=== PATIENT | male | born 1960 | race Caucasian/White ===

== ENCOUNTER 2018-01-29 17:37 | Inpatient (IN) | payer OTHER ==
[2018-01-29 19:08] LABS: PLATELET COUNT 342 10^3/uL (150-400)
[2018-01-29 19:17] LABS: INR 1.48 (0.83-1.16); PROTIME(PATIENT) 18.1 SEC (12.0-15.0)
--- NOTE | 2018-01-29 19:39 | EDPHY ---
H & P Stated Complaint: JAUNDICED/UPPER ABD PAIN CT SHOWSBILE DUCT OBSTRUCTION Time Seen by Provider: 01/29/18 17:49 HPI/ROS: CHIEF COMPLAINT: Jaundice, epigastric pain HISTORY OF PRESENT ILLNESS: 57-year-old male with recurrent pancreatitis presents with jaundice and epigastric pain. Onset of jaundice yesterday, increased today. Associated with moderate epigastric pain and vomiting. History of recurrent pancreatitis. Cholecystectomy performed because of recurrent pancreatitis and was found have a small pancreatic duct. Had a pancreatic duct stent until 2016, when it was removed. No subsequent episodes of pancreatitis until yesterday. Had an outpatient noncontrast abdominal CT scan done prior to arrival that showed pancreatic inflammation. Sent here for further evaluation. No prior history of jaundice. REVIEW OF SYSTEMS: complete 10 point ROS reviewed and is negative except for the noted elements in the HPI Source: Patient Exam Limitations: No limitations - Personal History Current Tetanus Diphtheria and Acellular Pertussis (TDAP): Yes Tetanus Vaccine Date: < 10 years - Medical/Surgical History Hx Asthma: No Hx Chronic Respiratory Disease: No Hx Diabetes: No Hx Cardiac Disease: No Hx Renal Disease: No Hx Cirrhosis: No Hx Alcoholism: No Hx HIV/AIDS: No Hx Splenectomy or Spleen Trauma: No Other PMH: pancreatitis, hypertension, testicle cyst removal, knee surg, yady. - Social History Smoking Status: Heavy smoker Alcohol Use: Sober Drug Use: None Additional Social History: - Physical Exam Exam: General Appearance: Alert, pleasant Eyes: Pupils equal and round, scleral icterus ENT, Mouth: Mucous membranes moist Neck: Normal inspection Respiratory: Lungs are clear to auscultation Cardiovascular: Regular rate and rhythm Gastrointestinal: Abdomen is soft, epigastric tenderness Neurological: A&O, nonfocal, normal gait Skin: Warm and dry, jaundiced Extremities: Nontender, no pedal edema Psychiatric: Mood and affect normal Constitutional: Initial Vital Signs Temperature (C) 37.1 C 01/29/18 17:45 Heart Rate 96 01/29/18 17:45 Respiratory Rate 18 01/29/18 17:45 Blood Pressure 125/84 H 01/29/18 17:45 O2 Sat (%) 99 01/29/18 17:45 O2 Delivery Mode Room Air Allergies/Adverse Reactions: No Known Allergies Allergy (Verified 01/29/18 17:43) Home Medications: Medication Instructions Recorded Fenofibrate [Lofibra] 160 mg PO DAILY 12/07/14 Metoprolol Succinate 100 mg PO DAILY 12/07/14 Omeprazole [Prilosec] 40 mg PO DAILY 12/07/14 PARoxetine HCL [Paxil 20mg (*)] 40 mg PO DAILY 12/07/14 Albuterol [Proventil Inhaler HFA 1 - 2 puffs IH Q4H PRN 01/29/18 (*)] Apixaban [Eliquis] 10 mg PO DAILY 01/29/18 Bimatoprost 0.01% [Lumigan 0.01% 1 drop EACHEYE HS 01/29/18 (*)] Lisinopril [Zestril 20 mg (*)] 20 mg PO DAILY 01/29/18 Rosuvastatin Calcium [Crestor] 10 mg PO DAILY 01/29/18 Medical Decision Making ED Course/Re-evaluation: This patient presents with epigastric pain and jaundice. Outpatient CT scan revealed acute pancreatitis. Laboratory tests ordered and reveal elevated bilirubin 30 and lipase 433. c/w biliary duct obstruction with acute pancreatitis. No evidence of infection. Dilaudid and Zofran IV given for nausea and pain control with good relief. Abdominal exam remains unchanged. Patient remained comfortable throughout the remainder of his emergency department stay. The hospitalist service was consulted for admission. Differential Diagnosis: Differential diagnosis includes though it is not limited to appendicitis, cholecystitis, diverticulitis, pyelonephritis, bowel perforation, small bowel obstruction. - Data Points Laboratory Results: Laboratory Results 01/29/18 18:50 01/29/18 18:50 01/29/18 01/29/18 01/29/18 18:55 18:50 18:50 WBC RBC Hgb Hct MCV MCH MCHC RDW Plt Count MPV Neut % (Auto) Lymph % (Auto) Harmon % (Auto) Eos % (Auto) Baso % (Auto) Nucleat RBC Rel Count Absolute Neuts (auto) Absolute Lymphs (auto) Absolute Monos (auto) Absolute Eos (auto) Absolute Basos (auto) Absolute Nucleated RBC Immature Gran % Immature Gran # PT 18.1 SEC H SEC (12.0-15.0) INR 1.48 H (0.83-1.16) APTT 30.1 SEC SEC (23.0-38.0) Sodium 134 mEq/L L mEq/L (135-145) Potassium 4.3 mEq/L mEq/L (3.3-5.0) Chloride 101 mEq/L mEq/L (97-110) Carbon Dioxide 20 mEq/l L mEq/l (22-31) Anion Gap 13 mEq/L mEq/L (6-14) BUN 14 mg/dL mg/dL (7-23) Creatinine 1.0 mg/dL mg/dL (0.7-1.3) Estimated GFR > 60 Glucose 119 mg/dL H mg/dL (70-100) Calcium 9.5 mg/dL mg/dL (8.5-10.4) Total Bilirubin 30.5 mg/dL H mg/dL (0.1-1.4) Conjugated Bilirubin 28.3 mg/dL H mg/dL (0.0-0.5) Unconjugated Bilirubin 2.2 mg/dL H mg/dL (0.0-1.1) Icterus Index > 25 AST 499 IU/L H IU/L (17-59) ALT 227 IU/L H IU/L (21-72) Alkaline Phosphatase 936 IU/L H IU/L (38-126) Total Protein 7.9 g/dL g/dL (6.3-8.2) Albumin 3.8 g/dL g/dL (3.5-5.0) Lipase 344 IU/L H IU/L (23-300) Urine Color SHERYL Urine Appearance HAZY Urine pH 5.0 (5.0-7.5) Ur Specific [place] 1.023 (1.002-1.030) Urine Protein 1+ H (NEGATIVE) Urine Ketones NEGATIVE (NEGATIVE) Urine Blood NEGATIVE (NEGATIVE) Urine Nitrate NEGATIVE (NEGATIVE) Urine Bilirubin POSITIVE H (NEGATIVE) Urine Urobilinogen 4.0 EU H EU (0.2-1.0) Ur Leukocyte Esterase NEGATIVE (NEGATIVE) Urine RBC 1-3 /hpf /hpf (0-3) Urine WBC 3-5 /hpf H /hpf (0-3) Ur Epithelial Cells TRACE /lpf /lpf (NONE-1+) Hyaline Casts 1-5 /lpf /lpf (0-1) Urine Mucus 2+ /lpf H /lpf (NONE-1+) Urine Glucose NEGATIVE (NEGATIVE) 01/29/18 18:50 WBC 13.59 10^3/uL H 10^3/uL (3.80-9.50) RBC 3.72 10^6/uL L 10^6/uL (4.40-6.38) Hgb 12.3 g/dL L g/dL (13.7-17.5) Hct 37.1 % L % (40.0-51.0) MCV 99.7 fL fL (81.5-99.8) MCH 33.1 pg pg (27.9-34.1) MCHC 33.2 g/dL g/dL (32.4-36.7) RDW 15.8 % H % (11.5-15.2) Plt Count 342 10^3/uL 10^3/uL (150-400) MPV 11.3 fL fL (8.7-11.7) Neut % (Auto) 74.8 % H % (39.3-74.2) Lymph % (Auto) 10.7 % L % (15.0-45.0) Harmon % (Auto) 7.0 % % (4.5-13.0) Eos % (Auto) 5.5 % % (0.6-7.6) Baso % (Auto) 0.8 % % (0.3-1.7) Nucleat RBC Rel Count 0.0 % % (0.0-0.2) Absolute Neuts (auto) 10.16 10^3/uL H 10^3/uL (1.70-6.50) Absolute Lymphs (auto) 1.46 10^3/uL 10^3/uL (1.00-3.00) Absolute Monos (auto) 0.95 10^3/uL H 10^3/uL (0.30-0.80) Absolute Eos (auto) 0.75 10^3/uL H 10^3/uL (0.03-0.40) Absolute Basos (auto) 0.11 10^3/uL H 10^3/uL (0.02-0.10) Absolute Nucleated RBC 0.00 10^3/uL 10^3/uL (0-0.01) Immature Gran % 1.2 % H % (0.0-1.1) Immature Gran # 0.16 10^3/uL H 10^3/uL (0.00-0.10) PT INR APTT Sodium Potassium Chloride Carbon Dioxide Anion Gap BUN Creatinine Estimated GFR Glucose Calcium Total Bilirubin Conjugated Bilirubin Unconjugated Bilirubin Icterus Index AST ALT Alkaline Phosphatase Total Protein Albumin Lipase Urine Color Urine Appearance Urine pH Ur Specific [place] Urine Protein Urine Ketones Urine Blood Urine Nitrate Urine Bilirubin Urine Urobilinogen Ur Leukocyte Esterase Urine RBC Urine WBC Ur Epithelial Cells Hyaline Casts Urine Mucus Urine Glucose Medications Given: Discontinued Medications Hydromorphone HCl (Dilaudid) 0.5 mg IVP EDNOW ONE Stop: 01/29/18 19:41 Last Admin: 01/29/18 19:44 Dose: 0.5 mg Lorazepam (Ativan Injection) 1 mg IVP EDNOW ONE Stop: 01/29/18 20:53 Last Admin: 01/29/18 20:56 Dose: 1 mg Ondansetron HCl (Zofran) 4 mg IVP EDNOW ONE Stop: 01/29/18 19:41 Last Admin: 01/29/18 19:44 Dose: 4 mg Departure - Departure Disposition: [facility] Acute Clinical Impression: Jaundice Condition: Good
[2018-01-29] MEDS ORDERED: ONDANSETRON 4 MG/2 ML VIAL IVP ONE (19:40)
[2018-01-29] MEDS ORDERED: HYDROmorphONE/DILAUDID 2 MG/ML INJ IVP ONE (19:40)
[2018-01-29] MEDS ORDERED: ONDANSETRON DISINTEGRATING 4 MG TAB PO PRN (20:43)
[2018-01-29] MEDS ORDERED: LORazepam 2 MG/ML INJ IVP PRN (20:43)
[2018-01-29] MEDS ORDERED: ONDANSETRON 4 MG/2 ML VIAL IVP PRN (20:43)
[2018-01-29] MEDS ORDERED: HYDROmorphONE/DILAUDID 1 MG/ML INJ IVP PRN (20:43)
[2018-01-29] MEDS ORDERED: LORazepam 2 MG/ML INJ IVP ONE (20:52)
--- NOTE | 2018-01-29 22:37 | PDGENHP ---
History and Physical - Chief Complaint yellow skin and eyes - History of Present Illness 57 yo M with hx of recurrent pancreatitis in the past with pancreatic duct stricture with prior stent placement and dilation and no recurrent issues for the last couple of years. He notes that last night when he was going to bed he thought his skin looked a bit yellow, then this morning he noticed his eyes and skin were for sure very yellow. He was sent by his PCP to get an abd CT scan and per his report when the radiologist read the report he told him to come to the hospital immediately. He has been having some abdominal pain as well, particularly in the mid epigastric region, but he states that compared to his prior bouts of pancreatitis it is quite mild. He has not been passing gas recently. Of note, he did have a colonoscopy on Saturday and is getting over a bout of pertussis for which he still has a mild cough. History Information - Allergies/Home Medication List Allergies/Adverse Reactions: No Known Allergies Allergy (Verified 01/29/18 17:43) Home Medications: Fenofibrate [Lofibra] 160 mg PO DAILY 12/07/14 [Last Taken 01/29/18] Metoprolol Succinate 100 mg PO DAILY 12/07/14 [Last Taken 01/29/18] Omeprazole [Prilosec] 40 mg PO DAILY 12/07/14 [Last Taken 01/29/18] PARoxetine HCL [Paxil 20mg (*)] 40 mg PO DAILY 12/07/14 [Last Taken 01/29/18] Albuterol [Proventil Inhaler HFA (*)] 1 - 2 puffs IH Q4H PRN 01/29/18 [Last Taken 3 Weeks Ago ~01/08/18] Apixaban [Eliquis] 10 mg PO DAILY 01/29/18 [Last Taken 01/29/18] Bimatoprost 0.01% [Lumigan 0.01% (*)] 1 drop EACHEYE HS 01/29/18 [Last Taken 09/09] Lisinopril [Zestril 20 mg (*)] 20 mg PO DAILY 01/29/18 [Last Taken 01/29/18] Rosuvastatin Calcium [Crestor] 10 mg PO DAILY 01/29/18 [Last Taken 01/29/18] I have personally reviewed and updated: family history, medical history, social history, surgical history - Past Medical History hypertension, hyperlipidemia, psychiatric history Additional medical history: recurrent/chronic pancreatitis. pancreatic pseudocyst. aortic thrombus - Surgical History Reports: cholecystectomy Additional surgical history: knee surgery. testicular cyst removal - Family History Positive for: non-pertinent - Social History Smoking Status: Heavy smoker Alcohol Use: Sober Drug Use: None Review of Systems Review of Systems: ROS: 10pt was reviewed & negative except for what was stated in HPI & below Physical Exam Physical Exam: Temp Pulse Resp BP Pulse Ox 37.1 C 100 16 121/32 H 95 01/29/18 17:45 01/29/18 21:18 01/29/18 21:18 01/29/18 21:18 01/29/18 21:18 Constitutional: no apparent distress, appears nourished Eyes: EOMI, icteric sclera Ears, Nose, Mouth, Throat: moist mucous membranes, hearing normal, ears appear normal Cardiovascular: regular rate and rhythym, no murmur, rub, or gallop, edema Respiratory: no respiratory distress, no rales or rhonchi, clear to auscultation Gastrointestinal: normoactive bowel sounds, soft, non-tender abdomen, no palpable masses Genitourinary: no bladder tenderness Skin: warm, other (jaundiced) Musculoskeletal: no muscle tenderness Neurologic: AAOx3 Psychiatric: interacting appropriately, not anxious, not encephalopathic Lab Data & Imaging Review 01/29/18 18:50 01/29/18 18:50 WBC 13.59 10^3/uL (3.80-9.50) H 01/29/18 18:50 RBC 3.72 10^6/uL (4.40-6.38) L 01/29/18 18:50 Hgb 12.3 g/dL (13.7-17.5) L 01/29/18 18:50 Hct 37.1 % (40.0-51.0) L 01/29/18 18:50 MCV 99.7 fL (81.5-99.8) 01/29/18 18:50 MCH 33.1 pg (27.9-34.1) 01/29/18 18:50 MCHC 33.2 g/dL (32.4-36.7) 01/29/18 18:50 RDW 15.8 % (11.5-15.2) H 01/29/18 18:50 Plt Count 342 10^3/uL (150-400) 01/29/18 18:50 MPV 11.3 fL (8.7-11.7) 01/29/18 18:50 Neut % (Auto) 74.8 % (39.3-74.2) H 01/29/18 18:50 Lymph % (Auto) 10.7 % (15.0-45.0) L 01/29/18 18:50 [place] % (Auto) 7.0 % (4.5-13.0) 01/29/18 18:50 Eos % (Auto) 5.5 % (0.6-7.6) 01/29/18 18:50 Baso % (Auto) 0.8 % (0.3-1.7) 01/29/18 18:50 Nucleat RBC Rel Count 0.0 % (0.0-0.2) 01/29/18 18:50 Absolute Neuts (auto) 10.16 10^3/uL (1.70-6.50) H 01/29/18 18:50 Absolute Lymphs (auto) 1.46 10^3/uL (1.00-3.00) 01/29/18 18:50 Absolute Monos (auto) 0.95 10^3/uL (0.30-0.80) H 01/29/18 18:50 Absolute Eos (auto) 0.75 10^3/uL (0.03-0.40) H 01/29/18 18:50 Absolute Basos (auto) 0.11 10^3/uL (0.02-0.10) H 01/29/18 18:50 Absolute Nucleated RBC 0.00 10^3/uL (0-0.01) 01/29/18 18:50 Immature Gran % 1.2 % (0.0-1.1) H 01/29/18 18:50 Immature Gran # 0.16 10^3/uL (0.00-0.10) H 01/29/18 18:50 PT 18.1 SEC (12.0-15.0) H 01/29/18 18:50 INR 1.48 (0.83-1.16) H 01/29/18 18:50 APTT 30.1 SEC (23.0-38.0) 01/29/18 18:50 Sodium 134 mEq/L (135-145) L 01/29/18 18:50 Potassium 4.3 mEq/L (3.3-5.0) 01/29/18 18:50 Chloride 101 mEq/L (97-110) 01/29/18 18:50 Carbon Dioxide 20 mEq/l (22-31) L 01/29/18 18:50 Anion Gap 13 mEq/L (6-14) 01/29/18 18:50 BUN 14 mg/dL (7-23) 01/29/18 18:50 Creatinine 1.0 mg/dL (0.7-1.3) 01/29/18 18:50 Estimated GFR > 60 01/29/18 18:50 Glucose 119 mg/dL (70-100) H 01/29/18 18:50 Calcium 9.5 mg/dL (8.5-10.4) 01/29/18 18:50 Total Bilirubin 30.5 mg/dL (0.1-1.4) H 01/29/18 18:50 Conjugated Bilirubin 28.3 mg/dL (0.0-0.5) H 01/29/18 18:50 Unconjugated Bilirubin 2.2 mg/dL (0.0-1.1) H 01/29/18 18:50 Icterus Index > 25 01/29/18 18:50 AST 499 IU/L (17-59) H 01/29/18 18:50 ALT 227 IU/L (21-72) H 01/29/18 18:50 Alkaline Phosphatase 936 IU/L (38-126) H 01/29/18 18:50 Total Protein 7.9 g/dL (6.3-8.2) 01/29/18 18:50 Albumin 3.8 g/dL (3.5-5.0) 01/29/18 18:50 Lipase 344 IU/L (23-300) H 01/29/18 18:50 Urine Color SHERYL 01/29/18 18:55 Urine Appearance HAZY 01/29/18 18:55 Urine pH 5.0 (5.0-7.5) 01/29/18 18:55 Ur Specific [place] 1.023 (1.002-1.030) 11/07/18 18:55 Urine Protein 1+ (NEGATIVE) H 01/29/18 18:55 Urine Ketones NEGATIVE (NEGATIVE) 01/29/18 18:55 Urine Blood NEGATIVE (NEGATIVE) 01/29/18 18:55 Urine Nitrate NEGATIVE (NEGATIVE) 01/29/18 18:55 Urine Bilirubin POSITIVE (NEGATIVE) H 01/29/18 18:55 Urine Urobilinogen 4.0 EU (0.2-1.0) H 01/29/18 18:55 Ur Leukocyte Esterase NEGATIVE (NEGATIVE) 01/29/18 18:55 Urine RBC 1-3 /hpf (0-3) 01/29/18 18:55 Urine WBC 3-5 /hpf (0-3) H 01/29/18 18:55 Ur Epithelial Cells TRACE /lpf (NONE-1+) 01/29/18 18:55 Hyaline Casts 1-5 /lpf (0-1) 01/29/18 18:55 Urine Mucus 2+ /lpf (NONE-1+) H 01/29/18 18:55 Urine Glucose NEGATIVE (NEGATIVE) 01/29/18 18:55 Assessment & Plan Assessment: Jaundice (Acute) 57 yo M with hx of recurrent pancreatitis and pancreatic duct stricture presenting with jaundice # jaundice/elevated lfts: obstructive picture with very elevated bili, alk phos and transaminases. Per radiology, read of outside CT scan only c/w pancreatitis. Discussed with GI, at this time will get MRCP for further evaluation, GI to evaluate in am, patient likely will require ERCP/EUS and may make the most sense to transfer to [facility] where the physicians already know him. Will trend lfts # acute on chronic pancreatitis: patient with only mildly elevated lipase but ct evidence of pancreatitis and pain c/w this, will start IVF, keep NPO, pain management with IV dilaudid as needed # chronic AC: presumably on this for hx of aortic thrombus, will hold for possible procedure in am # recent pertussis: with persistent cough but otherwise largely resolved # leukocytosis: trending, no sxs suggestive of acute infection # anemia: mild, stable, trending # IP status, will require > 48 hours stay for eval/mgmt of above Patient new to my care. Old records reviewed and summarized as above. Care plan reviewed with ER doctor as above, further hx obtained from patients present at bedside.
[2018-01-29] MEDS ORDERED: ALBUTEROL 60 PUFFS/8 GM MDI IH PRN (22:45)
[2018-01-29] MEDS: PROMETHAZINE HCL 25 MG/ML INJ IVP PRN (23:23)
[2018-01-29] MEDS: NS 1,000 ML IV SCH (23:24)
[2018-01-30] MEDS: HYDROmorphONE/DILAUDID 1 MG/ML INJ IVP PRN ×9 (01:41→20:05)
[2018-01-30 05:30] LABS: PLATELET COUNT 264 10^3/uL (150-400)
[2018-01-30 05:37] LABS: INR 1.34 (0.83-1.16); PROTIME(PATIENT) 16.8 SEC (12.0-15.0)
[2018-01-30] MEDS ORDERED: METOPROLOL SUCCINATE XR 100 MG TAB PO SCH (09:00)
[2018-01-30] MEDS ORDERED: LISINOPRIL 20 MG TAB PO SCH (09:00)
[2018-01-30] MEDS: ROSUVASTATIN CALCIUM 10 MG TAB PO SCH (09:21)
[2018-01-30] MEDS: PANTOPRAZOLE SODIUM 40 MG TAB PO SCH (09:21)
[2018-01-30] MEDS: PARoxetine HCL 20 MG TAB PO SCH (09:21)
[2018-01-30] MEDS: FENOFIBRATE 145 MG TAB PO SCH (09:21)
--- NOTE | 2018-01-30 10:26 | PDMN ---
Medical Necessity Medical necessity: Pt meets inpt criteria per MD order and MCG M-250, Pancreatitis, 2 days. 57 y/o w/hx of recurrent pancreatitis w/pancreatic duct stricture/stent placement presented w/mid epigastric abdominal pain, jaundice, and elevated LFT's. CT scan consistent w/pancreatitis, GI consult, MRCP today for further eval, will likely need ERCP/EUS. NPO, IVF, IV Dilaudid for pain (pt requiring this roughly every 2-3 hrs), anticipate>2MN for further med nec eval/ management of above.
[2018-01-30] MEDS: NS 1,000 ML IV SCH (11:44)
--- NOTE | 2018-01-30 12:01 | GCON ---
INPATIENT CONSULTATION REFERRING PHYSICIAN: Vasquez Hendrickson MD REASON FOR CONSULTATION: Jaundice. CHIEF COMPLAINT: Jaundice. HISTORY OF PRESENT ILLNESS: Briefly, the patient is a pleasant 57-year-old male with a history of re current chronic pancreatitis. The etiology of this is somewhat uncertain. He reports over the prior 10-15 years he had recurrent episodes of acute on chronic pancreatitis. Ultimately, he underwent se rial pancreatic duct manipulation at the [facility] with gradually enlarging pancreatic stent placement. His last series of that type of work was approximately 4 year s ago. He reports that since then he had few, if ever, episodes of pancreatitis. He does admit to he occasional occurrence of abdominal discomfort, although mild and rarely at all limiting. He repor ts that this was a significant difference from his prior several years of recurrent, sometimes severe , and frequent, episodes of pain. He was in his usual state of health until recently. In fact, he recently underwent a surveillance co lonoscopy without difficulty. Over the last several days, however, he noticed some worsening jaundic e. In that setting, he was evaluated through his primary care doctor with laboratory testing and CAT scan where he was noted to have an elevated bilirubin and a dilated bile duct. He was admitted to [facility] for additional management. Reports some mild abdominal discomfort similar to pain from pancreatitis, although reports much less severe than can be. He has had no fever, chills, sweats. He reports no sick contacts. He reports n o alcohol use. He reports no exposure to drugs or new medical therapies. ALLERGIES: None. OUTPATIENT MEDICATIONS: Were fenofibrate, metoprolol, Prilosec, Paxil, albuterol, Eliquis, lisinopri l, and rosuvastatin. PAST MEDICAL HISTORY: Includes elevated lipids and hypertension. History of recurrent and chronic p ancreatitis and remote history of pseudocyst. SURGICAL HISTORY: Cholecystectomy. FAMILY HISTORY: Negative for pancreatitis. SOCIAL HISTORY: He has history of alcohol use. Current smoker. No drug use. REVIEW OF SYSTEMS: A complete 10-system review was undertaken with the patient and is negative excep t for those details described in the history of present illness. PHYSICAL EXAMINATION: GENERAL: This is a well-developed male, in no apparent distress. HEENT: His pupils are equal, round, reactive to light and accommodation. Sclerae are very icteric. His oropha rynx is clear. NECK: Supple without lymphadenopathy. HEART: Regular without murmur. ABDOMEN: So ft, nontender. He has normoactive bowel sounds. EXTREMITIES: Free of cyanosis, clubbing, and edema . NEURO: Grossly nonfocal. SKIN: Warm and dry, but clearly jaundiced. PSYCHIATRIC: Reveals norm al mood and affect. LABORATORY TESTING: White count of 10.28, hemoglobin of 10.3, hematocrit 31.5, MCV of 100.6, platele t count of 264, INR of 1.48, sodium of 137, potassium of 4.1, chloride of 107, bicarb of 19, BUN of 1 6, creatinine of 0.9, total bilirubin of 28.3, conjugated bilirubin of 26.5, unconjugated bilirubin o f 1.8, AST of 428, ALT of 189, alkaline phosphatase of 702, lipase of 344. MRI of the abdomen is cur rently pending, but the initial report shows biliary ductal dilation without mass. IMPRESSION AND RECOMMENDATIONS: The patient has had the gradual development over the last several da ys of jaundice associated with icterus. His laboratory and imaging testing is consistent with biliar y ductal obstruction. Decompression of the bile ducts is indicated. He will likely need endoscopic ultrasound with ERCP to evaluate the reason for obstruction and to consider decompression maneuver nuñez ch as stenting. His outpatient medication list includes blood thinning agent, Eliquis, I will need t o review that with him. We may need to postpone his intervention in order to allow that medication t o wear off. /[id number]/MODL
--- NOTE | 2018-01-30 12:12 | HOSPPROG ---
Hospitalist Progress Note Assessment/Plan: 57 yo M w h/o biliary strictures and stents here w obstructive jaundice, possibel pancreatitis pancreatitis: mild, but does have abdominal pain and no appetite continue NPO pain meds pancreatic head fullness: similar to that in past but perhaps worse almost certainly a result of chronic pancreatitis EUS in AM jaundice: obstructive ercp in AM pruritis: trial of neurontin 100 daily- this has been shown to be effectivein about 50% of cases aortic thrombus: seen on echo and chest CTA 12/07/14 no apprent follow up may be reasonable to repat that study on this admission after ercp/eus (not ordered) proph: anticoagulated (on hold for procedure) dispo: inpt Subjective: case d/w leonel tracy. itchy Objective: Vital Signs Temp Pulse Resp BP Pulse Ox 36.7 C 93 16 119/74 94 01/30/18 07:38 01/30/18 07:38 01/30/18 07:38 01/30/18 07:38 01/30/18 07:38 Laboratory Results 01/30/18 04:15 01/30/18 04:15 01/29/18 01/30/18 01/31/18 05:59 05:59 05:59 Intake Total 958 Balance 958 PT 16.8 SEC (12.0-15.0) H 01/30/18 04:15 INR 1.34 (0.83-1.16) H 01/30/18 04:15 - Physical Exam Constitutional: no apparent distress, appears nourished Eyes: PERRL, icteric sclera Ears, Nose, Mouth, Throat: moist mucous membranes, hearing normal Cardiovascular: regular rate and rhythym, no murmur, rub, or gallop Respiratory: no respiratory distress, no rales or rhonchi Gastrointestinal: normoactive bowel sounds, soft, non-tender abdomen Genitourinary: no bladder fullness, No tyler in urethra Skin: warm, normal color Musculoskeletal: full muscle strength Neurologic: AAOx3 Psychiatric: interacting appropriately, not anxious ICD10 Worksheet Patient Problems: Problems Problem Status Onset Jaundice Acute
[2018-01-30] MEDS: GABAPENTIN 100 MG CAP PO SCH (12:43)
--- NOTE | 2018-01-30 13:02 | ASMTCMCOM ---
CM Note CM Note Notes: Discussed pt in rounds. Pt admitted for jaundice and possibly pancreatitis secondary to biliary obstruction in the setting of long history of biliary strictures and stents. Pt lives independently with . Pt to receive ERCP and US in the morning. Pt will likely discharge independently. No therapies ordered. D/C Plan: independent Date Signed: 01/30/2018 01:01 PM Electronically Signed By:Stephy Jensen
[2018-01-30] MEDS: NICOTINE 21 MG/24 HR PATCH TD SCH (13:41)
[2018-01-30] MEDS: PROMETHAZINE HCL 25 MG/ML INJ IVP PRN (20:00)
[2018-01-30] MEDS: BIMATOPROST 0.01% EACHEYE SCH (20:08)
[2018-01-30] MEDS ORDERED: PATCH REMOVAL 1 EA PATCH TD SCH (21:00)
[2018-01-30] MEDS: MELATONIN 3 MG TAB PO SCH (22:00)
[2018-01-31] MEDS: NS 1,000 ML IV SCH (05:27)
[2018-01-31] MEDS: PROMETHAZINE HCL 25 MG/ML INJ IVP PRN ×3 (08:55→13:28)
[2018-01-31] MEDS: HYDROmorphONE/DILAUDID 1 MG/ML INJ IVP PRN ×5 (08:56→21:29)
[2018-01-31] MEDS ORDERED: GLUCAGON HCL 1 MG VIAL ONE (10:24)
[2018-01-31] MEDS ORDERED: IOTHALAMATE MEG (CONRAY) 50 ML VIAL IV ONE (10:24)
[2018-01-31] MEDS ORDERED: INDOMETHACIN 50 MG SUPP PR ONE (10:25)
[2018-01-31] MEDS ORDERED: fentaNYL 100 MCG/2 ML INJ ONE ×2 (10:38→12:52)
[2018-01-31] MEDS ORDERED: PROPOFOL 200 MG/20 ML VIAL ONE (10:38)
[2018-01-31] MEDS ORDERED: ROCURONIUM 50 MG/5 ML VIAL ONE (10:39)
[2018-01-31] MEDS ORDERED: LIDOCAINE 2% 100 MG/5 ML SYR ONE (10:39)
--- NOTE | 2018-01-31 10:46 | PDANEPAE ---
ANE History of Present Illness Jaundice, here for ERCP EUS EGD ANE Past Medical History - Cardiovascular History Hx Hypertension: Yes Hx Arrhythmias: No Hx Chest Pain: No Hx Coronary Artery / Peripheral Vascular Disease: No Hx CHF / Valvular Disease: No Hx Palpitations: No Cardiovascular History Comment: NO CP - Pulmonary History Hx COPD: No Hx Asthma/Reactive Airway Disease: Yes Hx Recent Upper Respiratory Infection: No Hx Oxygen in Use at Home: No Hx Sleep Apnea: No Pulmonary History Comment: ASTHMA ATTACKS ONLY WITH URIs. DENIES SOB W STAIRS - Neurologic History Hx Cerebrovascular Accident: No Hx Seizures: No Hx Dementia: No - Endocrine History Hx Diabetes: No - Renal History Hx Renal Disorders: No - Liver History Hx Hepatic Disorders: Yes Hepatic History Comment: PANCREATITIS CURRENTLY. HAD FOR 15 YEARS WITH PERIODIC FLARE UPS - Neurological & Psychiatric Hx Hx Neurological and Psychiatric Disorders: Yes Neurological / Psychiatric History Comment: ANXIETY - Cancer History Hx Cancer: No - Congenital Disorder History Hx Congenital Disorders: No - GI History Hx Gastrointestinal Disorders: Yes Gastrointestinal History Comment: ABD PAIN. NAUSEA AND VOMITING - Other Health History Other Health History: NA - Chronic Pain History Chronic Pain: Yes (ABD PAIN) - Surgical History Prior Surgeries: KNEE SURG LEFT 20 Y AGO. TESTICULAR CYST REM 15 Y AGO ANE Review of Systems Review of Systems: - Exercise capacity Exercise capacity: >=4 METS ANE Patient History - Allergies Allergies/Adverse Reactions: No Known Allergies Allergy (Verified 01/29/18 17:43) - Home Medications Home Medications: Fenofibrate [Lofibra] 160 mg PO DAILY 12/07/14 [Last Taken 01/29/18] Metoprolol Succinate 100 mg PO DAILY 12/07/14 [Last Taken 01/29/18] Omeprazole [Prilosec] 40 mg PO DAILY 12/07/14 [Last Taken 01/29/18] PARoxetine HCL [Paxil 20mg (*)] 40 mg PO DAILY 12/07/14 [Last Taken 01/29/18] Albuterol [Proventil Inhaler HFA (*)] 1 - 2 puffs IH Q4H PRN 01/29/18 [Last Taken 3 Weeks Ago ~01/08/18] Apixaban [Eliquis] 10 mg PO DAILY 01/29/18 [Last Taken 01/29/18] Bimatoprost 0.01% [Lumigan 0.01% (*)] 1 drop EACHEYE HS 01/29/18 [Last Taken 09/09] Lisinopril [Zestril 20 mg (*)] 20 mg PO DAILY 01/29/18 [Last Taken 01/29/18] Rosuvastatin Calcium [Crestor] 10 mg PO DAILY 01/29/18 [Last Taken 01/29/18] - NPO status NPO Status: no food or drink >8 hours - Anes Hx Anes Hx: no prior problems - Smoking Hx Smoking Status: Heavy smoker - Alcohol Use Alcohol Use: Sober - Family Anes Hx Family Anes Hx: none Family Hx Anesthesia Complications: NEG ANE Labs/Vital Signs - Labs Result Diagrams: 01/30/18 04:15 01/30/18 04:15 - Vital Signs Blood Pressure: 120/76 Heart Rate: 88 Respiratory Rate: 10 O2 Sat (%): 95 Height: 177.8 cm Weight: 82.372 kg ANE Physical Exam - Airway Neck exam: FROM Mallampati Score: Class 2 Mouth exam: normal dental/mouth exam, chavez - Pulmonary Pulmonary: no respiratory distress, clear to auscultation - Cardiovascular Cardiovascular: regular rate and rhythym, no murmur, rub, or gallop - ASA Status ASA Status: III ANE Anesthesia Plan Anesthesia Plan: general endotracheal anesthesia
--- NOTE | 2018-01-31 12:37 | HOSPPROG ---
Hospitalist Progress Note Assessment/Plan: 57 yo M w h/o biliary strictures and stents here w obstructive jaundice, possible pancreatitis pancreatitis: mild, but does have abdominal pain and no appetite -OK to restart diet and advance as tolerated per GI pancreatic head fullness: similar to noted previously -chronic pancreatitis -s/p ERCP with metal stent placement per GI -has been seen at [facility] prev also jaundice: obstructive -now with metal stent -watch LFTs -FU with [facility] as outpt pruritis: trial of neurontin 100 daily helping -add hydroxyzine prn aortic thrombus: seen on echo and chest CTA 12/07/14 -no apparent follow up -restart anticoag when hgb stable -needs re-eval as oupt anemia -watch closely for stability -fu as outpt, may need further outpt evals DVT prophy: chronic anticoagulated (on hold for procedure) PCP Marina Bai FULL CODE dispo: > 2 mdnts for IVF, IV pain medications, possible further evaluation of jaundice Subjective: Just returned from ERCP, hungry, pain OK with meds. No n/v. Objective: Vital Signs Temp Pulse Resp BP Pulse Ox 98.2 F 88 10 L 120/76 95 01/31/18 10:38 01/31/18 10:46 01/31/18 10:46 01/31/18 10:46 01/31/18 10:46 Laboratory Results 01/30/18 04:15 01/30/18 04:15 01/30/18 01/31/18 02/01/18 11:59 11:59 11:59 Intake Total 958 3656 Balance 958 3656 PT 16.8 SEC (12.0-15.0) H 01/30/18 04:15 INR 1.34 (0.83-1.16) H 01/30/18 04:15 - Time Spent With Patient Time Spent with Patient: greater than 35 minutes Time Spent with Patient: Greater than 35 minutes spent on this patients care, greater than 50% of time spent counseling, educating, and coordinating care regarding the above mentioned plan. - Physical Exam Constitutional: no apparent distress, other (very jaundiced) Eyes: icteric sclera Ears, Nose, Mouth, Throat: moist mucous membranes, hearing normal Cardiovascular: regular rate and rhythym, no murmur, rub, or gallop Respiratory: no respiratory distress, no rales or rhonchi, clear to auscultation Gastrointestinal: normoactive bowel sounds, tenderness (throughout) Skin: other (jaundiced) Psychiatric: interacting appropriately, not anxious, not encephalopathic, thought process linear ICD10 Worksheet Patient Problems: Problems Problem Status Onset Jaundice Acute
--- NOTE | 2018-01-31 12:37 | GIREPORT ---
[facility] Surgical Services - Endoscopy Department Patient Name: Dean Roca Procedure Date: 01/31/2018 10:35 AM Patient Type: Inpatient Attending MD/ ER Physician: Alvarado Pemberton MD Procedure: Upper EUS Indications: Suspected mass in pancreas on MRI, Obstruction of bile duct on MRI, Epigastric abdominal pain Patient Profile: 57 year old male with a history of chronic pancreatitis presents for evaluation of CBD dilation with jaundice and abnormal imaging with enla rged pancreatic head with questionable mass lesion. Providers: Alvarado Pemberton MD Medicines: General Anesthesia Complications: No immediate complications. Estimated blood loss: Minimal. Description of Procedure: After obtaining informed consent, the endoscope was passed under direct vision. Throughout the procedure, the patient's blood pressure, pulse, and oxygen saturations were monitored continuously. The Endosonoscope was introduced through the mouth, and advanced to the second part of duoden um. The Endosonoscope was introduced through the mouth, and advanced to the second part of duodenum. The upper EUS was accomplished without difficu lty. The esophagus, stomach, and duodenum were visualized endosonographicall y. The patient tolerated the procedure well. Findings: Endoscopic Finding : The examined esophagus was normal. A hiatal hernia was present. Patchy mildly erythematous mucosa was found in the entire examined stom ach. Biopsies were taken with a cold forceps for histology. An acquired mild stenosis was found in the second portion of the duoden um and was traversed. The mucosa was edematous. Biopsies were taken with a cold forceps for histology. Endosonographic Finding : There was no sign of significant endosonographic abnormality in the visualized portion of the liver. No masses were identified. No lymphadenopathy seen. There was dilation in the common bile duct which measured up to 14 mm. It appeared to run into a possible mass lesion. An irregular mass was identified in the pancreatic head. The mass was hypoechoic. The mass measured 15 mm by 15 mm in maximal cross-sectional diameter. The endosonographic borders were poorly-defined. Fine needle aspiration for cytology was performed. Color Doppler imaging was utiliz ed prior to needle puncture to confirm a lack of significant vascular structures within the needle path. Three passes were made with the 25 g auge needle using a transduodenal approach. A stylet was used. A vulcanizer rubber plate was present and performed a preliminary cytologic examination. Estimated Blood Loss: Estimated blood loss was minimal. Post Op Diagnosis: - Normal esophagus. - Hiatal hernia. - Erythematous mucosa in the stomach. Biopsied. - Acquired duodenal stenosis. Biopsied. - There was no evidence of significant pathology in the visualized port ion of the liver. - There was dilation in the common bile duct which measured up to 14 mm . - A mass was identified in the pancreatic head. Fine needle aspiration performed. Chronic pancreatitis mass versus malignancy? Suspect inflamm atory mass? Recommendation: - Perform an ERCP today. - Await cytology results and await path results. - Thank you for allowing Attending Participation: I personally performed the entire procedure. Alvarado Pemberton MD Alvarado Pemberton MD 01/31/2018 12:36:28 PM This report has been signed electronicallyAlvarado Pemberton MD Number of Addenda: 0 Note Initiated On: 01/31/2018 10:35 AM [email or web address]
--- NOTE | 2018-01-31 12:43 | GIREPORT ---
Replaced By [facility] Surgical Services - Endoscopy Department Patient Name: Dean Roca Procedure Date: 01/31/2018 11:54 AM Patient Type: Inpatient Attending MD/ ER Physician: Alvarado Pemberton MD Procedure: ERCP Indications: Abnormal MRCP, Jaundice Patient Profile: 57 year old male presents for biliary decompression. He has significant jaundice with an obstruction noted on MRCP. Providers: Alvarado Pemberton MD Medicines: General Anesthesia Complications: No immediate complications. Estimated blood loss: Minimal. Description of Procedure: After obtaining informed consent, the scope was passed under direct vis ion. Throughout the procedure, the patient's blood pressure, pulse, and oxyg en saturations were monitored continuously. The Duodenalscope was introduc ed through the mouth, and advanced to the duodenum and used to inject cont rast into the bile duct. The ERCP was accomplished without difficulty. The patient tolerated the procedure well. Findings: A press helper film of the abdomen was obtained. Surgical clips, consistent wi th a previous cholecystectomy, were seen in the area of the right upper quad rant of the abdomen. The esophagus was successfully intubated under direct vision. The scope was advanced to a normal major papilla in the descend ing duodenum without detailed examination of the pharynx, larynx and associ ated structures, and upper GI tract. With difficulty, the duodenoscope was p assed into the second portion of the duodenum . Due to the duodenal stenosis this was technically challenging. The ampulla was eventually identified and a wire was passed into the biliary tree. There was evidence of a prior bi liary sphincterotomy. The short-nosed traction sphincterotome was passed over the guidewire and the bile duct was then deeply cannulated. Contrast was injected. I personally interpreted the bile duct images. Ductal flow of contrast was adequate. Image quality was adequate. Contrast extended to the entire biliary tree. The lower third of the main bile duct contained localized stenoses 15 mm in length in the area of the pancreatic head. The biliary tree was swept with a 12 mm balloon starting at the bifurcation . Sludge was swept from the duct. Cytology brushings obtained. One 10 mm by 6 cm covered metal stent was placed into the common bile duct. Bile flowe d through the stent. The stent was in good position. Estimated Blood Loss: Estimated blood loss was minimal. Post Op Diagnosis: - Localized biliary strictures were found in the lower third of the claudia n bile duct. - The biliary tree was swept and sludge was found. - Cytology brushings performed. - One covered metal stent was placed into the common bile duct. Recommendation: - Return patient to hospital [facility] for ongoing care. - Repeat ERCP in 3 months to remove stent. - Thank you for allowing me to participate in the care of your patient. Attending Participation: I personally performed the entire procedure. Alvarado Pemberton MD Alvarado Pemberton MD 01/31/2018 12:43:10 PM This report has been signed electronicallyAlvarado Pemberton MD Number of Addenda: 0 Note Initiated On: 01/31/2018 11:54 AM [email or web address]
[2018-01-31] MEDS ORDERED: NALOXONE HCL 0.4 MG/ML INJ IVP PRN (12:47)
[2018-01-31] MEDS ORDERED: ONDANSETRON 4 MG/2 ML VIAL IVP PRN (12:47)
--- NOTE | 2018-01-31 12:47 | POSTANESTH ---
Post Anesthetic Evaluation Cardiovascular Status: Normal, Stable, Similar to Pre-Op Cond Respiratory Status: Normal, Stable, Similar to Pre-op Cond. Level of Consciousness/Mental Status: Can Participate in Eval, Alert and Oriented Pain Control: Adequate, Prn Tx Ordered Nausea/Vomiting Control: Adequate, Prn Tx Ordered Complications Possibly Related to Anesthesia: None Noted
[2018-01-31] MEDS: fentaNYL 100 MCG/2 ML INJ IVP PRN ×2 (12:53→13:00)
[2018-01-31] MEDS ORDERED: HYDROmorphONE/DILAUDID 2 MG/ML INJ ONE (13:10)
[2018-01-31] MEDS ORDERED: PROMETHAZINE HCL 25 MG/ML INJ ONE (13:14)
[2018-01-31] MEDS: NICOTINE 21 MG/24 HR PATCH TD SCH (13:53)
--- NOTE | 2018-01-31 14:36 | ASMTCMCOM ---
CM Note CM Note Notes: Pt lives independently with . Pt to receive ERCP and US today. Pt will likely discharge independently. No therapies ordered. D/C Plan: independent Date Signed: 01/31/2018 02:29 PM Electronically Signed By:Tracy Santana
[2018-01-31] MEDS ORDERED: D5W 1/2 NS 1,000 ML IV SCH (14:45)
[2018-01-31] MEDS: PANTOPRAZOLE SODIUM 40 MG TAB PO SCH (15:24)
[2018-01-31] MEDS: GABAPENTIN 100 MG CAP PO SCH (15:24)
[2018-01-31] MEDS: PARoxetine HCL 20 MG TAB PO SCH (15:24)
[2018-01-31] MEDS: FENOFIBRATE 145 MG TAB PO SCH (15:25)
[2018-01-31] MEDS: ROSUVASTATIN CALCIUM 10 MG TAB PO SCH (15:25)
[2018-01-31] MEDS: hydrOXYzine HCL 25 MG TAB PO PRN (15:25)
[2018-01-31] MEDS: BIMATOPROST 0.01% EACHEYE SCH (21:13)
[2018-01-31] MEDS: MELATONIN 3 MG TAB PO SCH (21:14)
[2018-02-01] MEDS: HYDROmorphONE/DILAUDID 1 MG/ML INJ IVP PRN ×3 (00:37→12:08)
[2018-02-01 05:35] LABS: PLATELET COUNT 261 10^3/uL (150-400)
[2018-02-01] MEDS: FENOFIBRATE 145 MG TAB PO SCH (08:49)
[2018-02-01] MEDS: PROMETHAZINE HCL 25 MG/ML INJ IVP PRN (08:49)
[2018-02-01] MEDS: ROSUVASTATIN CALCIUM 10 MG TAB PO SCH (08:49)
[2018-02-01] MEDS: GABAPENTIN 100 MG CAP PO SCH (08:50)
[2018-02-01] MEDS: PANTOPRAZOLE SODIUM 40 MG TAB PO SCH (08:50)
[2018-02-01] MEDS: PARoxetine HCL 20 MG TAB PO SCH (08:50)
[2018-02-01] MEDS: NICOTINE 21 MG/24 HR PATCH TD SCH (09:00)
--- NOTE | 2018-02-01 09:19 | SOAPPROG ---
SOAP Progress Note Assessment/Plan: Assessment: Jaundice s/o ERCP with stnet bili better Abd Pain ?better no b melena Decrease H+H suspect hydration no e/o active bleeding Plan: Agree with recheck H+H Trial of clear liquids ADT If H+H stable and able to take PO OK to D/C Repeat ERCp in 3 months 02/01/18 09:16 Subjective: CC Jaundice Some epi pain this AM no melena Objective: Vital Signs Temp Pulse Resp BP Pulse Ox 36.7 C 88 18 151/102 H 98 02/01/18 08:00 02/01/18 08:00 02/01/18 08:00 02/01/18 08:00 02/01/18 08:00 Laboratory Results 02/01/18 04:44 02/01/18 04:44 01/31/18 02/01/18 02/02/18 05:59 05:59 05:59 Intake Total 3656 1825 Balance 3656 1825 PT 16.8 SEC (12.0-15.0) H 01/30/18 04:15 INR 1.34 (0.83-1.16) H 01/30/18 04:15 Physical Exam - Physical Exam General Appearance: WD/WN Respiratory: lungs clear Abdomen: soft (mild tenderness no rebound) ICD10 Worksheet Patient Problems: Problems Problem Status Onset Jaundice Acute
[2018-02-01] MEDS: hydrOXYzine HCL 25 MG TAB PO PRN ×2 (10:43→16:48)
[2018-02-01] MEDS: APIXABAN 5 MG TAB PO SCH ×2 (13:30→21:12)
[2018-02-01] MEDS: traMADol 50 MG TAB PO PRN (15:36)
[2018-02-01] MEDS: PROMETHAZINE HCL 25 MG TAB PO PRN ×2 (15:42→21:12)
[2018-02-01] MEDS: MELATONIN 3 MG TAB PO SCH (21:13)
[2018-02-01] MEDS: oxyCODONE IR 5 MG TAB PO PRN (21:13)
[2018-02-01] MEDS: BIMATOPROST 0.01% EACHEYE SCH (21:16)
[2018-02-02] MEDS: traMADol 50 MG TAB PO PRN (02:49)
[2018-02-02] MEDS: oxyCODONE IR 5 MG TAB PO PRN ×2 (02:49→11:32)
[2018-02-02 05:21] LABS: PLATELET COUNT 255 10^3/uL (150-400)
[2018-02-02 07:33] VITALS: BP 159/101
[2018-02-02] MEDS: GABAPENTIN 100 MG CAP PO SCH (10:32)
[2018-02-02] MEDS: PANTOPRAZOLE SODIUM 40 MG TAB PO SCH (10:32)
[2018-02-02] MEDS: APIXABAN 5 MG TAB PO SCH (10:32)
[2018-02-02] MEDS: ROSUVASTATIN CALCIUM 10 MG TAB PO SCH (10:33)
[2018-02-02] MEDS: FENOFIBRATE 145 MG TAB PO SCH (10:33)
[2018-02-02] MEDS: NICOTINE 21 MG/24 HR PATCH TD SCH (10:33)
[2018-02-02] MEDS: PARoxetine HCL 20 MG TAB PO SCH (10:33)
[2018-02-02] MEDS: PROMETHAZINE HCL 25 MG TAB PO PRN (11:31)
--- NOTE | 2018-02-02 17:29 | ASDISCHSUM ---
Discharge Information Plan Status:Home with No Needs Medically Cleared to Leave:02/01/2018 Discharge Date:02/02/2018 11:37 AM CM D/C Disposition:Home, Routine, Self-Care ADT D/C Disposition:Home, Routine, Self-Care Projected Discharge Date:02/02/2018 11:37 AM Transportation at D/C:Family Discharge Delay Reason: Follow-Up Date:02/02/2018 11:37 AM Discharge Slot:2 - 12:01 pm - 18:00 pm Final Diagnosis:pancreatitis Placement Information Patient Contact Information Contact Name:YELENA Relationship: Address:[address] [place] [address] [address] Work Phone: [facility]:[place] Alternate Phone: [facility]/Zip Code:[place] [address] Email: Financial Information Financial Class:Michael Yeboah Primary Plan Desc:[facility]HAEL PAPPAS [facility] Primary Plan Number:[id number] Secondary Plan Desc: Secondary Plan Number: Assessment Information [facility] CM Progress Note CM Note CM Note Notes: Discussed pt in rounds. Pt admitted for jaundice and possibly pancreatitis secondary to biliary obstruction in the setting of long history of biliary strictures and stents. Pt lives independently with . Pt to receive ERCP and US in the morning. Pt will likely discharge independently. No therapies ordered. D/C Plan: independent Date Signed: 01/30/2018 01:01 PM Electronically Signed By:Stephy Jensen [facility] CM Progress Note CM Note CM Note Notes: Pt lives independently with . Pt to receive ERCP and US today. Pt will likely discharge independently. No therapies ordered. D/C Plan: independent Date Signed: 01/31/2018 02:29 PM Electronically Signed By:Tracy Santana Intervention Information
--- NOTE | 2018-02-02 17:30 | ASMTCMCOM ---
CM Note CM Note Notes: Patient discharged home independently, to follow up as recommended. [employer] PPO coverage. Date Signed: 02/02/2018 05:29 PM Electronically Signed By:Kylee Lizarraga
--- NOTE | 2018-02-03 00:58 | HOSPPROG ---
Hospitalist Progress Note Assessment/Plan: 57 yo M w h/o biliary strictures and stents here w obstructive jaundice, pancreatitis pancreatitis: mild, improving -tolerating diet -change to oral pain/nausea meds pancreatic head fullness: similar to noted previously -chronic pancreatitis -s/p ERCP with metal stent placement per GI yesterday -has been seen at [facility] prev also jaundice: obstructive -improving s/p metal stent placement yesterday -FU with [facility] as outpt pruritis: trial of neurontin 100 daily helping -hydroxyzine prn helping aortic thrombus: seen on echo and chest CTA 12/07/14 -no apparent follow up -restart anticoag -needs re-eval as oupt anemia -watch closely for stability -fu as outpt, may need further outpt evals DVT prophy: chronic anticoagulated (on hold for procedure but restart today) PCP Marina Bai FULL CODE dispo: hopeful discharge tomorrow if OK with oral medications and LFTs continue to decrease Subjective: Still with pain/cramping but less than yesterday, says prev stent didnt cause pain. Hydroxyzine helped with itching. No n/v/d, will try to eat/ drink a bit more today and transition to oral meds as eager to discharge. Objective: Vital Signs Temp Pulse Resp BP Pulse Ox 97.9 F 86 16 159/101 H 96 02/02/18 07:33 02/02/18 07:33 02/02/18 07:33 02/02/18 07:33 02/02/18 07:33 Laboratory Results 02/02/18 04:36 02/01/18 04:44 02/01/18 02/02/18 02/03/18 11:59 11:59 11:59 Intake Total 1825 850 Balance 1825 850 PT 16.8 SEC (12.0-15.0) H 01/30/18 04:15 INR 1.34 (0.83-1.16) H 01/30/18 04:15 - Physical Exam Constitutional: no apparent distress, other (less jaundice) Eyes: icteric sclera Ears, Nose, Mouth, Throat: moist mucous membranes, hearing normal Cardiovascular: regular rate and rhythym Respiratory: no respiratory distress, no rales or rhonchi, clear to auscultation Gastrointestinal: normoactive bowel sounds, tenderness (mild RUQ) Skin: other (jaundiced but less) Psychiatric: interacting appropriately, not anxious, not encephalopathic, thought process linear ICD10 Worksheet Patient Problems: Problems Problem Status Onset Jaundice Acute
== END 2018-02-02 11:37 | disposition home or self-care (01) | DRG 438 ==
LOC: F1N 23:01
PROVIDERS: ADMIT Internal Medicine; ATTEND Internal Medicine
DX: K86.1 Other chronic pancreatitis (principal); K83.1 Obstruction of bile duct; K31.5 Obstruction of duodenum; I10 Essential (primary) hypertension; L29.9 Pruritus, unspecified; K44.9 Diaphragmatic hernia without obstruction or gangrene; Z79.01 Long term (current) use of anticoagulants; Z72.0 Tobacco use; J45.909 Unspecified asthma, uncomplicated
CPT/HCPCS: 96374; C1874; J1170; J1610; J2001; J2060; J2405; J2550; J2704; J3010; Q9961

== ENCOUNTER 2018-05-12 11:35 | Day surgery (SDC) | payer OTHER ==
[2018-05-12] MEDS ORDERED: LR 1,000 ML IV ONE (12:39)
[2018-05-12] MEDS ORDERED: MIDAZOLAM 2 MG/2 ML VIAL IVP ONE (15:00)
--- NOTE | 2018-05-12 15:01 | PDANEPAE ---
ANE Past Medical History - Cardiovascular History Hx Hypertension: Yes Hx Arrhythmias: No Hx Chest Pain: No Hx Coronary Artery / Peripheral Vascular Disease: No Hx CHF / Valvular Disease: No Hx Palpitations: No Cardiovascular History Comment: NO CP - Pulmonary History Hx COPD: No Hx Asthma/Reactive Airway Disease: Yes Hx Recent Upper Respiratory Infection: No Hx Oxygen in Use at Home: No Hx Sleep Apnea: No Sleep Apnea Screening Result - Last Documented: Positive Pulmonary History Comment: ASTHMA ATTACKS ONLY WITH URIs. heriberto triggers - Neurologic History Hx Cerebrovascular Accident: No Hx Seizures: No Hx Dementia: No - Endocrine History Hx Diabetes: No - Renal History Hx Renal Disorders: No - Liver History Hx Hepatic Disorders: Yes Hepatic History Comment: hx of PANCREATITIS 01/[address] [facility] has had for 15 yrs with flare ups - Neurological & Psychiatric Hx Hx Neurological and Psychiatric Disorders: Yes Neurological / Psychiatric History Comment: ANXIETY - Cancer History Hx Cancer: No - Congenital Disorder History Hx Congenital Disorders: No - GI History Hx Gastrointestinal Disorders: Yes Gastrointestinal History Comment: ABD PAIN. NAUSEA AND VOMITING. hx of yady. hx of pancreatitis. hx of egd/ eus - Other Health History Other Health History: wears glasses - Chronic Pain History Chronic Pain: No - Surgical History Prior Surgeries: 05/05/18 colonoscopy at [facility]. 01/31/18 EGD/ EUS / ERCP with Niecy. 12/02/14 lap yady with Tobi. 11/12/14 EGD/ EUS with Jose. KNEE SURG LEFT 20 Y AGO. TESTICULAR CYST REM 15 Y AGO ANE Review of Systems Review of Systems: - Exercise capacity METS (RN): 4 METS ANE Patient History - Allergies Allergies/Adverse Reactions: No Known Allergies Allergy (Verified 05/06/18 18:43) - Home Medications Home Medications: Fenofibrate [Lofibra] 12/07/14 [Last Taken 05/12/18] Metoprolol Succinate 12/07/14 [Last Taken 05/12/18] Omeprazole [Prilosec] 12/07/14 [Last Taken 05/12/18] Apixaban [Eliquis] BID 01/29/18 [Last Taken 05/09/18] Bimatoprost 0.01% [Lumigan 0.01% (*)] EACHEYE HS 01/29/18 [Last Taken 1 Day Ago ~05/11/18] Lisinopril [Zestril 20 mg (*)] 01/29/18 [Last Taken 1 Day Ago ~05/11/18] Gabapentin [Neurontin 100 MG (*)] 05/06/18 [Last Taken Unknown] - NPO status NPO Since - Liquids (Date): 05/12/18 NPO Since - Liquids (Time): 10:30 NPO Since - Solids (Date): 05/10/18 NPO Since - Solids (Time): 13:00 - Smoking Hx Smoking Status: Heavy smoker - Family Anes Hx Family Hx Anesthesia Complications: none ANE Labs/Vital Signs - Vital Signs Blood Pressure: 139/91 Heart Rate: 75 Respiratory Rate: 20 O2 Sat (%): 99 Height: 177.8 cm Weight: 82.372 kg ANE Physical Exam - Airway Neck exam: FROM Mallampati Score: Class 3 Mouth exam: normal dental/mouth exam - Pulmonary Pulmonary: no respiratory distress - Cardiovascular Cardiovascular: regular rate and rhythym - ASA Status ASA Status: III
--- NOTE | 2018-05-12 15:02 | PDGENHP ---
History & Physical Chief Complaint: abnormal imaging History of Present Illness: 57 year old male with a history of chronic pancreatitis presents for biliary obstruction. Pertinent Past, Social, Family History: see anesthesiology notes Relevant Physical Exam: HEENT: anicteric. CV: RRR +s1s2. lungs: CTAB. Abd: soft, nt, + bs Cardiorespiratory Assessment: ASA 3
[2018-05-12] MEDS ORDERED: PROPOFOL 200 MG/20 ML VIAL ONE (15:03)
[2018-05-12] MEDS ORDERED: fentaNYL 100 MCG/2 ML INJ ONE (15:03)
[2018-05-12] MEDS ORDERED: ROCURONIUM 50 MG/5 ML VIAL ONE (15:05)
[2018-05-12] MEDS ORDERED: LIDOCAINE 2% 100 MG/5 ML SYR ONE (15:05)
[2018-05-12] MEDS ORDERED: IOTHALAMATE MEG (CONRAY) 50 ML VIAL IV ONE (15:07)
[2018-05-12] MEDS ORDERED: NS 500 ML IV SCH (15:15)
[2018-05-12] MEDS ORDERED: SUGAMMADEX SODIUM 200 MG/2 ML VIAL IVP ONE (16:01)
--- NOTE | 2018-05-12 16:57 | GIREPORT ---
[facility] - Endoscopy Department Patient Name: Dean Roca Procedure Date: 05/12/2018 3:10 PM Patient Type: Outpatient Attending MD/ ER Physician: Alvarado Pemberton MD Procedure: ERCP Indications: Common bile duct stricture Patient Profile: 57 year old male with chronic pancreatitis with presents for evaluation of biliary obstruction/distal CBD stricture. Providers: Alvarado Pemberton MD Medicines: General Anesthesia Complications: No immediate complications. Estimated blood loss: Minimal. Description of Procedure: After obtaining informed consent, the scope was passed under direct vis ion. Throughout the procedure, the patient's blood pressure, pulse, and oxyg en saturations were monitored continuously. The Duodenalscope was introduc ed through the mouth, and advanced to the duodenum and used to inject cont rast into the bile duct. The ERCP was accomplished without difficulty. The patient tolerated the procedure well. Findings: A biliary stent was visible on the rock lather film. One metal covered stent was removed from the biliary tree using a snare. The area was erythematous and nodular suspected to be from pancreatitis. A straight Roadrunner wire w as passed into the biliary tree. The short-nosed traction sphincterotome w as passed over the guidewire and the bile duct was then deeply cannulated. Contrast was injected. I personally interpreted the bile duct images. D uctal flow of contrast was adequate. Image quality was adequate. Contrast ext ended to the entire biliary tree. The CBD was dilated to 10mm. The stricture was much improved. The biliary tree was swept with a 15 mm balloon starting at the bifurcation. Sludge was swept from the duct. One stone was removed. No stones remained. Estimated Blood Loss: Estimated blood loss was minimal. Post Op Diagnosis: - Choledocholithiasis was found. Complete removal was accomplished by balloon extraction. - One stent was removed from the biliary tree. - The biliary tree was swept. Recommendation: - Discharge patient to home (with escort). - Clear liquid diet today. - Continue present medications. - Thank you for allowing me to participate in the care of your patient. Attending Participation: I personally performed the entire procedure. Alvarado Pemberton MD Alvarado Pemberton MD 05/12/2018 4:56:44 PM This report has been signed electronicallyAlvarado Pemberton MD Number of Addenda: 0 Note Initiated On: 05/12/2018 3:10 PM [email or web address]
[2018-05-12] MEDS ORDERED: fentaNYL 100 MCG/2 ML INJ IVP PRN (17:04)
[2018-05-12] MEDS ORDERED: ONDANSETRON 4 MG/2 ML VIAL IVP PRN (17:04)
[2018-05-12] MEDS ORDERED: NALOXONE HCL 0.4 MG/ML INJ IVP PRN (17:04)
[2018-05-12] MEDS ORDERED: ALBUTEROL 3 ML DEYVIAL IH PRN (17:04)
--- NOTE | 2018-05-12 17:06 | POSTANESTH ---
Post Anesthetic Evaluation Cardiovascular Status: Similar to Pre-Op Cond Respiratory Status: Similar to Pre-op Cond. Level of Consciousness/Mental Status: Mildly Sleepy, Arousable Pain Control: Adequate, Prn Tx Ordered Nausea/Vomiting Control: Adequate, Prn Tx Ordered Complications Possibly Related to Anesthesia: None Noted
[2018-05-12 18:18] VITALS: BP 103/66
--- NOTE | 2018-05-13 07:20 | GIREPORT ---
[facility] - Endoscopy Department Patient Name: Dean Roca Procedure Date: 05/12/2018 3:08 PM Patient Type: Outpatient Attending MD/ ER Physician: Alvarado Pemberton MD Procedure: Upper EUS Indications: Abnormal abdominal/pelvic CT scan, Abdominal pain in the left upper quadrant, Nausea with vomiting Patient Profile: 57 year old male presents for evaluation of biliary obstruction, abdomi nal pain, nausea, vomiting, and abnormal imaging. Providers: Alvarado Pemberton MD Medicines: General Anesthesia Complications: No immediate complications. Estimated blood loss: Minimal. Description of Procedure: After obtaining informed consent, the endoscope was passed under direct vision. Throughout the procedure, the patient's blood pressure, pulse, and oxygen saturations were monitored continuously. The Endosonoscope was introduced through the mouth, and advanced to the second part of duoden um. The Endoscope was introduced through the mouth, and advanced to the sec ond part of duodenum. The upper EUS was accomplished without difficulty. Th e esophagus, stomach, and duodenum were visualized endosonographically. T he patient tolerated the procedure well. Findings: Endoscopic Finding : The examined esophagus was normal. A hiatal hernia was present. An acquired moderate stricture was found in the duodenal bulb. Biopsies were taken with a cold forceps for histology. A previously placed metal stent was seen in the second portion of the duodenum. Endosonographic Finding : An irregular mass was identified in the pancreatic head. Part of the ma ss was hypoechoic.with parts being anechoic around the edges. The mass narinder sured 15 mm by 15 mm in maximal cross-sectional diameter. The endosonographic borders were poorly-defined. Fine needle biopsy was performed. Color Do ppler imaging was utilized prior to needle puncture to confirm a lack of significant vascular structures within the needle path. Two passes were made with the 25 gauge ultrasound biopsy needle using a transduodenal approa ch. A visible core of tissue was obtained. Pancreatic parenchymal abnormalities were noted in the pancreatic body. These consisted of hyperechoic foci and lobularity. The pancreatic duct had a dilated endosonographic appearance in the bod y of the pancreas. The pancreatic duct measured up to 5 mm in diameter. There was no sign of significant endosonographic abnormality in the com mon bile duct except for artifact from the stent. There was no sign of significant endosonographic abnormality in the visualized portion of the liver. No masses were identified. No lymphadenopathy seen. Estimated Blood Loss: Estimated blood loss was minimal. Post Op Diagnosis: - Normal esophagus. - Hiatal hernia. - Acquired duodenal stricture. Biopsied. Suspect inflammation from pancreatitis? - Metal stent in the duodenum. - A mass was identified in the pancreatic head. Fine needle biopsy perf ormed. - Pancreatic parenchymal abnormalities consisting of hyperechoic foci a nd lobularity were noted in the pancreatic body. - The pancreatic duct had a dilated endosonographic appearance in the b lesli of the pancreas. The pancreatic duct measured up to 5 mm in diameter. - There was no sign of significant pathology in the common bile duct. - There was no evidence of significant pathology in the visualized port ion of the liver. - Etiology? Inflammatory mass versus other? Await FNB results. Recommendation: - Perform an ERCP today. - Await cytology results and await path results. - CT scan with IV and PO contrast of the abdomen in 3 months - Thank you for allowing me to participate in the care of your patient. Attending Participation: I personally performed the entire procedure. Alvarado Pemberton MD Alvarado Pemberton MD 05/13/2018 7:20:04 AM This report has been signed electronicallyAlvarado Pemberton MD Number of Addenda: 0 Note Initiated On: 05/12/2018 3:08 PM [email or web address]
== END 2018-05-12 18:21 | disposition home or self-care (01) ==
LOC: FSGY 11:35
PROVIDERS: ATTEND Internal Medicine Gastroenterology
PROC: 0FBG4ZX Excision of Pancreas, Percutaneous Endoscopic Approach, Diagnostic (ICD-10-PCS; principal; 2018-05-12 13:45)
PROC: 0DB98ZX Excision of Duodenum, Via Natural or Artificial Opening Endoscopic, Diagnostic (ICD-10-PCS; principal; 2018-05-12 13:45)
PROC: 0FC98ZZ Extirpation of Matter from Common Bile Duct, Via Natural or Artificial Opening Endoscopic (ICD-10-PCS; 2018-05-12 13:45)
DX: R93.5 Abnormal findings on diagnostic imaging of other abdominal regions, including retroperitoneum (principal); R10.12 Left upper quadrant pain; D37.8 Neoplasm of uncertain behavior of other specified digestive organs; K44.9 Diaphragmatic hernia without obstruction or gangrene
CPT/HCPCS: J2001; J2250; J2704; J3010; Q9961

== ENCOUNTER → 2018-07-29 | Outpatient (CLI) | payer OTHER ==
[~2018-07-29] MED LIST: IOPAMIDOL (ISOVUE-300) 100 ML BTL ONE
== END ==
LOC: FIMAGING 11:38
PROVIDERS: ATTEND Internal Medicine Gastroenterology
DX: K86.9 Disease of pancreas, unspecified (principal)
CPT/HCPCS: Q9967